=== PATIENT | female | born 1990 | race Asian ===

== ENCOUNTER 2021-05-13 13:28 | Observation (INO) ==
[2021-05-13] MEDS ORDERED: LACTATED RINGER'S 1,000 ML IV PRN (15:06)
--- NOTE | 2021-05-13 15:12 | Obstetrical Progress Note ---
Date of Service May 13, 2021 Assessment & Plan (1) Vaginal bleeding: Plan: Vaginal bleeding at 25w5d. Differential is cervical bleeding, cervical insufficiency, labor, partial / ongoing abruption. Will administer BMTZ, collect a GBS swab, both in anticipation of possible early delivery. Will d/w MFM in anticipation of possible transfer to unit for observation at a hospital where NICU care is available should it be needed, if they agree th at is warranted and feasible. Placing IV for hydration and in anticipation of possible emergency intervention should abruption declare itself. Labs ordered. Rh positive noted. Subjective 31yo @ 25w5d with SIUP c/b A1GDM, presented with vaginal bleeding. Of note, there were also several episodes / complaints of vaginal bleeding in this patient's 1st trimester, up through February 2021; she has been on pelvic rest and denies intercourse "since many months ago." The patient c/o 3 days of low R side back ache, but no dysuria/hematuria/fr equency. She then experienced a hard BM this morning that required some excessive pushing, after which she noted bright red vaginal bleeding. There was initially a tablespoon or so of bright red blood, after which she put on a pad, and another similar amount came out on the pad over the next hour. She was asked to come to L&D for evaluation. Over the time she was initially admitted by nursing, an area 3" x 1" on her daija pad stained with bright red blood, and a trickle of red blood was noted from the vagina down the perineum onto the bed making a quarter-sized pool upon removal of the pad and positioning of the patient for pelvic exam. The patient denies any contractions during this, feels good movement, and does not believe her water has broken. Physical Exam Constitutional: WD/WN, vitals as above Eyes: PERRL, conjunctivae normal, anicteric sclerae ENMT: external ear and nose normal, oropharynx normal Neck: supple Respiratory: normal respiratory effort and able to speak in complete sentences; no respiratory distress Cardiovascular: Rate/Rhythm: regular rate and regular rhythm Gastrointestinal (Abdomen): Gravid / AGA, nontender Musculoskeletal: no cyanosis or clubbing, extremities motor strength 5/5 Skin: no rashes, warm and dry Psychiatric: A+Ox3, euthymic affect Genitourinary: Speculum/Bimanual Exam: no vaginal lesions and uterus nontender Manual OB Exam: + cervical dilation fingertip, + cervical effacement 10%, + station high and + amniotic fluid (No leaking evident) Bedside ultrasound shows fetus in breech position, placenta not low-lying, cervix with significant length and appears to have fluid/debris in canal but does not funnel with valsal va. FHT shows AGA and toco is quiet. Results & Data ([facility]) Vital Signs (Past 12 Hours) Vital Signs Temp Pulse Resp BP 05/13/21 13:53 82 108/66 05/13/21 13:44 98.4 F 20 PG Care Time/CCT Total # of Minutes Spent Total Time Spent with Patient: Total time spent is greater than 50% in coordination of care (as documented) at patient's floor/unit and/or counseling patient: Coding Level of Care Code None Diagnoses Vaginal bleeding N93.9
[2021-05-13] MEDS ORDERED: BETAMETH SOD PHOS/ACETATE IA 6 MG/ML IM STA (15:23)
[2021-05-13 15:31] LABS: Basophils # (auto) 0.01 K/uL (0-0.2); Basophils % (auto) 0.1 %; Eosinophils # (auto) 0.02 K/uL (0-0.5); Eosinophils % (auto) 0.2 %; Hematocrit (blood only) 36.1 % (37-47); Hemoglobin 12.4 g/dL (12.0-16.0); Immature Granulocytes # (auto) 0.06 K/uL (0.00-0.02); Immature Granulocytes % (auto) 0.5 %; Lymphocytes # (auto) 2.86 K/uL (1.2-3.4); Lymphocytes % (auto) 24.7 %; Mean Corpuscular Hemoglobin 31.2 pg (25-34); Mean Corpuscular Volume 90.7 fL (80-100); Mean Platelet Volume 10.2 fL (7.4-10.4); Monocytes # (auto) 0.73 K/uL (0.11-0.59); Monocytes % (auto) 6.3 %; Neutrophils % (auto) 68.2 %; Platelet Count 222 K/uL (130-400); RDW Coefficient of Variation 13.3 % (11.5-14.5); RDW Standard Deviation 43.7 fL (36.4-46.3); Red Blood Count 3.98 M/uL (4.2-5.4); White Blood Count 11.58 K/uL (4.8-10.8)
[2021-05-13 15:45] LABS: Partial Thromboplastin Time 25.5 Seconds (21.0-31.0); Prothrombin Time 9.8 Seconds (9.0-12.0)
[2021-05-13 15:46] LABS: Mean Corpuscular Hgb Conc 34.3 g/dL (32-36)
[2021-05-13 15:54] LABS: Albumin Globulin Ratio 1.2 (0.9-2); Albumin Level 3.9 gm/dl (3.4-5.0); BUN Creatinine Ratio 16.1 (10-20); Bilirubin,Total 0.4 mg/dl (0.2-1.0); Calcium 9.7 mg/dl (8.5-10.1); Creatinine Clr Calc Pharmacy 133.3 ml/min; Est GFR (African American) 139.3 ml/min; Est GFR (Non-African American) 120.2 ml/min; Globulin 3.2 gm/dl (2.5-4.0); Potassium 3.6 mmol/L (3.5-5.1); Total Protein 7.1 gm/dl (6.0-8.3)
--- NOTE | 2021-05-17 12:12 | Discharge Summary ---
Date of Service May 17, 2021 Admission Exam (Per Admitting) Constitutional WD/WN, vitals as above Eyes PERRL, conjunctivae normal, anicteric sclerae ENMT external ear and nose normal, oropharynx normal Respiratory normal respiratory effort and able to speak in complete sentences; no respiratory distress Cardiovascular Rate/Rhythm: regular rate and regular rhythm Musculoskeletal no cyanosis or clubbing, extremities motor strength 5/5 Skin no rashes, warm and dry Psychiatric A+Ox3, euthymic affect Genitourinary Speculum/Bimanual Exam: no vaginal lesions and uterus nontender Manual OB Exam: + cervical dilation + fingertip, + cervical effacement + 10%, + station + high and + amniotic fluid (No leaking evident) Discharge Data Consultations 05/13/21 15:06 Consult Anesthesiology Stat Hospital Course (1) Vaginal bleeding: Vaginal bleeding at 25w5d. No other complaints (including no mention of LOF) at time of admission. Good status and quiet toco. Bedside US showed fetus in breech position, normal placenta, adequate fluid, cervical length normal and without funnelling but with fluid/debris in canal. Differential is cervical bleeding, cervical insufficiency, labor, partial / ongoing abruption. Patient was given BMTZ 1st dose, had IV placed, GB S swab collected, and was transferred in stable condition to [facility] higher level of care / NICU option. Coding Level of Care Code OBSERV/HOSP SAME DATE LVL 2 Diagnoses Vaginal bleeding N93.9
== END 2021-05-13 17:14 | disposition short-term general hospital (02) ==
LOC: OPB 13:28 → 4S2 13:28 → 4S1 13:36 → INTOOBSV 15:11 → 4S1 15:11
DX: Z20.822 Contact with and (suspected) exposure to COVID-19; N93.9 Abnormal uterine and vaginal bleeding, unspecified; O46.92 Antepartum hemorrhage, unspecified, second trimester; Z3A.25 25 weeks gestation of pregnancy